=== PATIENT | female | born 1995 | race African-American/Black ===

== ENCOUNTER → 2017-06-11 | Outpatient (CLI) | payer SELFPAY ==
--- NOTE | 2017-06-11 16:44 | RADIOLOGY REPORT (SQ) ---
EXAM DESCRIPTION: U/S [id number] TRNABD 1GES W/ODOP COMPLETED DATE/TIME: 06/11/2017 4:14 pm REASON FOR STUDY: ENCOUNTER FOR SUPERVISION OF OTHER NORMAL , FIRST TRIMESTER(Z34.81 Z34.81 ENCOUNTER FOR SUPRVSN OF NORMAL , FIRST TRIM COMPARISON: None. TECHNIQUE: Transabdominal static and realtime grayscale images acquired of the pelvis. Additional se lected spectral and color Doppler images recorded. All images stored on PACs. bHCG: Not available. LIMITATIONS: None. FINDINGS: Single intrauterine with crown-rump length corresponding to 11 weeks 4 days. Es timated due date 12/27/2017. heart rate 168. No evidence of subchorionic hemorrhage. Ovaries are normal. IMPRESSION: LIVING INTRAUTERINE . EGA 11 weeks 4 days Trimester of : First - 0 to 13 weeks. TECHNICAL DOCUMENTATION: JOB ID: [id number] [employer]- All Rights Reserved
== END ==
LOC: RAD 15:32
PROVIDERS: ATTEND Nurse Practitioner Women's Health
DX: Z34.81 Encounter for supervision of other normal pregnancy, first trimester (principal)
CPT/HCPCS: 76801

== ENCOUNTER 2017-08-01 20:19 | Emergency (ER) | payer MEDICAID ==
[2017-08-01 21:42] LABS: ABSOLUTE EOSINOPHILS # (AUTO) 0.1 10^3/uL (0.0-0.6); ABSOLUTE LYMPHOCYTES (AUTO) 2.9 10^3/uL (0.5-4.7); ABSOLUTE MONOCYTES (AUTO) 0.5 10^3/uL (0.1-1.4); BASOPHILS % (AUTO) 0.4 % (0-2); EOSINOPHILS % (AUTO) 0.8 % (0-6); HEMATOCRIT 35.1 % (36.0-47.0); HEMOGLOBIN 11.9 g/dL (12.0-15.5); HGB HCT DIFFERENCE 0.6; LYMPHOCYTES % (AUTO) 27.9 % (13-45); MEAN CORPUSCULAR HEMOGLOBIN 29.3 pg (27.0-33.4); MEAN CORPUSCULAR HGB CONC 33.9 g/dL (32.0-36.0); MEAN CORPUSCULAR VOLUME 86 fl (80-97); MONOCYTES % (AUTO) 4.6 % (3-13); RED BLOOD COUNT 4.06 10^6/uL (3.72-5.28); RED CELL DISTRIBUTION WIDTH 16.9 % (11.5-14.0); SEGMENTED NEUTROPHILS % (AUTO) 66.3 % (42-78); WHITE BLOOD COUNT 10.5 10^3/uL (4.0-10.5)
[2017-08-01 21:45] LABS: AMORPHOUS SEDIMENT,URINE TRACE /HPF; APPEARANCE,URINE SLIGHTLY-CLOUDY; BILIRUBIN,URINE NEGATIVE (NEGATIVE); GLUCOSE, URINE NEGATIVE (NEGATIVE); KETONES,URINE 20 mg/dL (NEGATIVE); LEUKOCYTE ESTERASE,URINE SMALL (NEGATIVE); NITRITE,URINE NEGATIVE (NEGATIVE); PROTEIN,URINE 30 mg/dL (NEGATIVE); URINE SPECIFIC GRAVITY 1.032; UROBILINOGEN,URINE NEGATIVE mg/dL (<2.0)
[2017-08-01 21:52] LABS: ALANINE AMINOTRANSFERASE 87 U/L (9-52); ALBUMIN 3.8 g/dL (3.5-5.0); ALKALINE PHOSPHATASE 55 U/L (38-126); ANION GAP 11 (5-19); ASPARTATE AMINO TRANSFERASE 55 U/L (14-36); BLOOD UREA NITROGEN 8 mg/dL (7-20); CALCIUM 9.4 mg/dL (8.4-10.2); CARBON DIOXIDE 24 mmol/L (22-30); CHLORIDE 103 mmol/L (98-107); CREATININE RESULT 0.68 mg/dL (0.52-1.25); GLUCOSE 111 mg/dL (75-110); LIPASE 65.7 U/L (23-300); POTASSIUM 3.4 mmol/L (3.6-5.0); SODIUM 138.1 mmol/L (137-145); TOTAL PROTEIN 7.2 g/dL (6.3-8.2)
[2017-08-01 21:53] LABS: BILIRUBIN,TOTAL < 0.1 mg/dL (0.2-1.3)
--- NOTE | 2017-08-01 23:11 | ER Document Report ---
HPI - HPI Pain Level: 3 Notes: Patient is a 22-year-old female who presents the ED approximately 18 weeks complaining of lower pelvic cramping 4 hours that has been relatively steady. Patient states that she has had cramping in the past with this , but it has not lasted this long. Patient is otherwise eating and drinking without any difficulties. She is urinating normally and having normal bowel movements. She has not noticed any vaginal discharge, odor, or bleeding. 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 Patient denies any other recent illness. She denies any significant medical history or drug allergies otherwise. Denies any headache, fever, URI, sore throat, chest pain, palpitations, syncope, cough , shortness of breath, wheeze, dyspnea, nausea/vomiting/diarrhea, urinary retention, dysuria, hematuria, back pain, loss of control of bowel or bladder, numbness/tingling, saddle anesthesia, muscle paralysis/weakness, or rash. - ROS Notes: REVIEW OF SYSTEMS: CONSTITUTIONAL : Denies fever, chills, or sweats. Denies recent illness. EENT: Denies eye, ear, throat, or mouth pain or symptoms. Denies nasal or sinus congestion or discharge. Denies throat, tongue, or mouth swelling or difficulty swallowing. CARDIOVASCULAR: Denies chest pain. Denies palpitations or racing or irregular heart beat. Denies ankle edema. RESPIRATORY: Denies cough, cold, or chest congestion. Denies shortness of breath, difficulty breathing, or wheezing. GASTROINTESTINAL: see hpi. Denies nausea, vomiting, or diarrhea. Denies blood in vomitus, stools, or per rectum. Denies black, tarry stools. Denies constipation. GENITOURINARY: Denies difficulty urinating, painful urination, burning, frequency, blood in urine, or discharge. FEMALE GENITOURINARY: Denies vaginal bleeding, heavy or abnormal periods, irregular periods. Denies vaginal discharge or odor. MUSCULOSKELETAL: Denies back or neck pain or stiffness. Denies joint pain or swelling. SKIN: Denies rash, lesions or sores. NEUROLOGICAL: Denies confusion or altered mental status. Denies passing out or loss of consciousness. Denies dizziness or lightheadedness. Denies headache. Denies weakness or paralysis or loss of use of either side. Denies problems with gait or speech. Denies sensory loss, numbness, or tingling. Denies seizures. ALL OTHER SYSTEMS REVIEWED AND NEGATIVE. Dictation was performed using [employer] voice recognition software - REPRODUCTIVE LMP: 03/26/17 - DERM Skin Color: Normal Past Medical History - Social History Smoking Status: Unknown if Ever Smoked Family History: Reviewed & Not Pertinent Patient has suicidal ideation: No Patient has homicidal ideation: No Renal/ Medical History: Denies: Hx Peritoneal Dialysis Vertical Provider Document - CONSTITUTIONAL Agree With Documented VS: Yes Notes: PHYSICAL EXAMINATION: GENERAL: Well-appearing, well-nourished and in no acute distress. A&ox4 LUNGS: Breath sounds clear to auscultation bilaterally and equal. No wheezes rales or rhonchi. HEART: Regular rate and rhythm without murmurs, rubs, gallops. ABDOMEN: Soft, nondistended abdomen. No guarding, no rebound. No masses appreciated. Normal bowel sounds present. No CVA tenderness bilaterally. + mild tenderness to the suprapubic area. Neg McBurney point tenderness. No obvious hernia or lymphadenopathy. Musculoskeletal: LE's b/l: FROM to passive/active. Strength 5+/5. Extremities: No cyanosis, clubbing, or edema b/l. Peripheral pulses 2+. Capillary refill less than 3 seconds. NEUROLOGICAL: Normal speech, normal gait. Normal sensory, motor exams PSYCH: Normal mood, normal affect. SKIN: Warm, Dry, normal turgor, no rashes or lesions noted. - INFECTION CONTROL TRAVEL OUTSIDE OF THE [place] IN LAST 30 DAYS: No - RESPIRATORY O2 Sat by Pulse Oximetry: 98 Course - Re-evaluation Re-evalutation: 08/02/17 02:12 Patient is an afebrile, well-hydrated, 22-year-old female who presents the ED nonspecific pelvic cramping while being . Vitals are stable. PE is otherwise unremarkable. CBC, CMP, lipase, urinalysis, transvaginal ultrasound are unremarkable for any acute pathology. Low suspicion/risk for acute appendicitis, bowel obstruction, acute cholecystitis, acute cholangitis, perforated diverticulitis, incarcerated hernia, pancreatitis, perforated ulcer, peritonitis, sepsis, pelvic inflammatory disease, ectopic , tubo- ovarian abscess, ovarian torsion, or other systemic emergent condition at this time. Patient is aware that her condition can change from initial presentation and she needs to monitor symptoms closely and seek medical attention if any acute changes. Conservative measures otherwise for symptoms. Recheck with OBGYN in 2-3 days. Recheck with your PCM in 3-5 days. Return to the ED with any worsening/concerning symptoms otherwise as reviewed in discharge. Patient is in agreement. - Vital Signs Vital signs: Temp Pulse Resp BP Pulse Ox 99 F 109 H 18 133/78 H 98 08/01/17 20:39 08/01/17 20:39 08/01/17 20:39 08/01/17 20:39 08/01/17 20:39 - Laboratory Result Diagrams: 08/01/17 21:25 08/01/17 21:25 Laboratory results interpreted by me: 08/01/17 08/01/17 08/01/17 21:25 21:25 21:25 Hgb 11.9 L Hct 35.1 L RDW 16.9 H Potassium 3.4 L Glucose 111 H Total Bilirubin < 0.1 L AST 55 H ALT 87 H Urine Protein 30 H Urine Ketones 20 H Ur Leukocyte Esterase SMALL H Urine HCG, Qual POSITIVE H Discharge - Discharge Clinical Impression: Pelvic cramping Condition: Stable Disposition: HOME, SELF-CARE Instructions: Pelvic Pain in ([facility]), ([facility]) Additional Instructions: Rest Tylenol/ibuprofen as needed Light stretches daily Strength exercises as able Moist heat, cool compress, and massage may help F/u with your PCP in 3-5 days for a recheck Schedule a consult with OBGYN Return to the ED with any worsening symptoms and/or development of fever, headache, chest pain, palpitations, syncope, shortness of breath, trouble breathing, abdominal pain, n/v/d, muscle weakness/paralysis, vaginal bleeding/ odor/discharge, or other worsening symptoms that are concerning to you. Referrals: SPEEDY REY MD [ACTIVE STAFF] - Follow up as needed [facility] [Provider Group] - Follow up in 3-5 days
--- NOTE | 2017-08-02 01:42 | RADIOLOGY REPORT (SQ) ---
EXAM DESCRIPTION: U/S OB 14+ TA/1 GEST W/DOPPLER CLINICAL HISTORY: 22 years, Female, pelvic cramping COMPARISON: 06/11/2017 TECHNIQUE: The second trimester obstetrical ultrasound performed using a transabdominal technique. Due to positioning the intracranial contents are not well evaluated. FINDINGS: Gestational measurements. BPD: 4.33 cm compatible with an estimated gestational age of 19 weeks, 1 days. HC: 17.02 cm compatible with an estimated gestational age of 19 weeks, 4 days. AC: 12.57 cm compatible with an estimated gestational age of 18 weeks, 1 days. Femur length: 3.22 cm compatible with an estimated gestational age of 20 weeks, 0 days. heart rate of 149 bpm. LVP of 4.2 cm. Estimated weight of 275 g. not calculated presentation is vertex. Estimated gestational age of 19 weeks, 2 days. Estimated delivery date of 12/25/2017 Cervical length: 2.9. organ survey: Due to positioning the intracranial contents are not evaluated adequately. Four-chamber heart is identified. Three-vessel cord insertion identified. No abnormalities of the kidneys, bladder, stomach, or extremities. Lateral ventricles are within normal limits. No definite abnormalities of the visualized portions of the spine however the entire spine is not visualized. The cerebellum and cisterna magna are not well evaluated. Adnexa: The left ovary measures 3.6 x 3.7 x 2.6 cm. The right ovary is not identified. In the anterior uterine myometrium there is a hypoechoic region measuring 2.5 cm in greatest dimension. This may represent a fibroid. IMPRESSION: 1. Single live intrauterine with estimated gestational age of 19 weeks, 2 days. heart rate of 147 bpm. 2. No definite abnormality noted on organ survey.
[2017-08-02 02:09] VITALS: BP 120/66
== END 2017-08-02 02:20 | disposition home or self-care (01) ==
LOC: ER 20:19
DX: O26.892 Other specified pregnancy related conditions, second trimester (principal); R10.2 Pelvic and perineal pain; Z3A.18 18 weeks gestation of pregnancy
CPT/HCPCS: 36415; 76805; 80053; 81001; 81025; 83690; 84702; 85025; 93976; 99284

== ENCOUNTER 2017-12-25 09:37 | Outpatient (CLI) | payer MEDICAID ==
[2017-12-25 10:15] LABS: APPEARANCE,URINE SLIGHTLY-CLOUDY; BILIRUBIN,URINE NEGATIVE (NEGATIVE); COLOR,URINE YELLOW; GLUCOSE, URINE NEGATIVE (NEGATIVE); KETONES,URINE NEGATIVE (NEGATIVE); LEUKOCYTE ESTERASE,URINE MODERATE (NEGATIVE); NITRITE,URINE NEGATIVE (NEGATIVE); PROTEIN,URINE NEGATIVE (NEGATIVE); URINE SPECIFIC GRAVITY 1.013; UROBILINOGEN,URINE NEGATIVE mg/dL (<2.0)
[2017-12-25 10:42] LABS: URINE AMPHETAMINES SCREEN NEGATIVE; URINE BARBITURATES SCREEN NEGATIVE; URINE BENZODIAZEPINES SCREEN NEGATIVE; URINE COCAINE SCREEN NEGATIVE; URINE MARIJUANA (THC) SCREEN NEGATIVE; URINE METHADONE SCREEN NEGATIVE; URINE PHENCYCLIDINE SCREEN NEGATIVE
--- NOTE | 2017-12-25 11:21 | Non Stress Test Report ---
Non Stress Test Datetime Report Generated by CPN: 12/25/2017 11:21 DEMOGRAPHIC EGA NST: 39.1 INDICATION Indication for Study: Other Indication for Study (NST) Other: LABOR CHECK MONITORING Monitor Explained: Monitor Explained; Test Explained; Patient Verbalized Understanding Time on Monitor: 12/25/2017 09:50 Time off Monitor: 12/25/2017 10:58 NST Duration: 68 NST INTERVENTIONS NST Interventions: PO Hydration; Reposition Patient Physician Notified NST: J TORO, CNM BABY A: [id number] BABY A Movement : Present Contraction Frequency : IRREG FHR Baseline : 130 Accelerations : 15X15 Decelerations : None Variability : Moderate 6-25bpm NST Review: Meets Criteria for Reactive NST NST Review and Verified By : Ann Marie Camp RNC NST Results: Reactive NST REPORT Report Trigger: Send Report
== END 2017-12-25 11:13 | disposition home or self-care (01) ==
LOC: LC 09:37
PROVIDERS: ATTEND Obstetrics & Gynecology
PROC: 4A1HXCZ Monitoring of Products of Conception, Cardiac Rate, External Approach (ICD-10-PCS; principal; 2017-12-25)
DX: O47.1 False labor at or after 37 completed weeks of gestation (principal); Z3A.39 39 weeks gestation of pregnancy
CPT/HCPCS: 59025; 80307; 81005

== ENCOUNTER 2017-12-26 04:47 | Outpatient (CLI) | payer MEDICAID ==
[2017-12-26 05:37] LABS: APPEARANCE,URINE CLEAR; BILIRUBIN,URINE NEGATIVE (NEGATIVE); COLOR,URINE STRAW; GLUCOSE, URINE NEGATIVE (NEGATIVE); KETONES,URINE NEGATIVE (NEGATIVE); LEUKOCYTE ESTERASE,URINE NEGATIVE (NEGATIVE); NITRITE,URINE NEGATIVE (NEGATIVE); PROTEIN,URINE NEGATIVE (NEGATIVE); URINE SPECIFIC GRAVITY 1.008; UROBILINOGEN,URINE NEGATIVE mg/dL (<2.0)
[2017-12-26 05:53] LABS: URINE AMPHETAMINES SCREEN NEGATIVE; URINE BARBITURATES SCREEN NEGATIVE; URINE BENZODIAZEPINES SCREEN NEGATIVE; URINE COCAINE SCREEN NEGATIVE; URINE MARIJUANA (THC) SCREEN NEGATIVE; URINE METHADONE SCREEN NEGATIVE; URINE PHENCYCLIDINE SCREEN NEGATIVE
== END 2017-12-26 08:01 | disposition home or self-care (01) ==
LOC: LC 04:47
PROVIDERS: ATTEND Obstetrics & Gynecology
PROC: 4A1HXCZ Monitoring of Products of Conception, Cardiac Rate, External Approach (ICD-10-PCS; principal; 2017-12-26)
DX: O47.1 False labor at or after 37 completed weeks of gestation (principal); Z3A.39 39 weeks gestation of pregnancy
CPT/HCPCS: 59025; 80307; 81005

== ENCOUNTER 2017-12-27 00:39 | Inpatient (IN) | payer MEDICAID ==
[2017-12-27] MEDS ORDERED: RINGERS SOLUTION,LACTATED 1,000 ML IV PRN (00:55)
[2017-12-27] MEDS ORDERED: RINGERS SOLUTION,LACTATED 1,000 ML IV ONE (00:55)
[2017-12-27] MEDS ORDERED: BENZOIN/ALOE VERA/STORAX/TOLU TINCTURE 60 ML TP PRN (00:56)
[2017-12-27] MEDS ORDERED: FENTANYL/BUPIVACAINE/NS/PF 200 MCG/100 ML RTUINJ EPI PRN (00:56)
[2017-12-27] MEDS ORDERED: BUPIVACAINE HCL 0.25 % INJ/PF (2.5 MG/1 ML) 30 ML VIAL INFIL ONE (00:56)
[2017-12-27 01:16] LABS: APPEARANCE,URINE CLOUDY; BILIRUBIN,URINE NEGATIVE (NEGATIVE); GLUCOSE, URINE NEGATIVE (NEGATIVE); KETONES,URINE TRACE mg/dL (NEGATIVE); LEUKOCYTE ESTERASE,URINE MODERATE (NEGATIVE); NITRITE,URINE NEGATIVE (NEGATIVE); PROTEIN,URINE NEGATIVE (NEGATIVE); URINE SPECIFIC GRAVITY 1.004; UROBILINOGEN,URINE NEGATIVE mg/dL (<2.0)
[2017-12-27 01:17] LABS: COLOR,URINE STRAW
[2017-12-27 01:31] LABS: ABSOLUTE BASOPHILS # (AUTO) 0.1 10^3/uL (0.0-0.2); ABSOLUTE LYMPHOCYTES (AUTO) 2.6 10^3/uL (0.5-4.7); ABSOLUTE MONOCYTES (AUTO) 0.9 10^3/uL (0.1-1.4); ABSOLUTE NEUT (AUTO) 10.5 10^3/uL (1.7-8.2); BASOPHILS % (AUTO) 0.6 % (0-2); EOSINOPHILS % (AUTO) 0.1 % (0-6); HEMOGLOBIN 12.7 g/dL (12.0-15.5); LYMPHOCYTES % (AUTO) 18.4 % (13-45); MEAN CORPUSCULAR HEMOGLOBIN 29.4 pg (27.0-33.4); MEAN CORPUSCULAR HGB CONC 33.3 g/dL (32.0-36.0); MEAN CORPUSCULAR VOLUME 88 fl (80-97); MONOCYTES % (AUTO) 6.5 % (3-13); PLATELET COUNT 202 10^3/uL (150-450); RED BLOOD COUNT 4.31 10^6/uL (3.72-5.28); RED CELL DISTRIBUTION WIDTH 15.3 % (11.5-14.0); SEGMENTED NEUTROPHILS % (AUTO) 74.4 % (42-78); TOTAL CELLS COUNTED % (AUTO) 100 %; WHITE BLOOD COUNT 14.2 10^3/uL (4.0-10.5)
[2017-12-27] MEDS ORDERED: FENTANYL/BUPIVACAINE/NS/PF 300 MCG/150 ML RTUINJ EPI ONE (01:47)
[2017-12-27] MEDS ORDERED: EPHEDRINE SULFATE INJ 50 MG/1 ML AMPULE ONE (01:47)
[2017-12-27 01:48] LABS: URINE AMPHETAMINES SCREEN NEGATIVE; URINE BARBITURATES SCREEN NEGATIVE; URINE BENZODIAZEPINES SCREEN NEGATIVE; URINE COCAINE SCREEN NEGATIVE; URINE MARIJUANA (THC) SCREEN NEGATIVE; URINE METHADONE SCREEN NEGATIVE; URINE PHENCYCLIDINE SCREEN NEGATIVE
[2017-12-27] MEDS ORDERED: BUPIVACAINE HCL 0.25 % INJ/PF (2.5 MG/1 ML) 30 ML VIAL ONE ×2 (01:48→01:51)
[2017-12-27] MEDS ORDERED: LIDOCAINE 1% INJ-PF (10 MG/ML) 30 ML SDV ONE (03:49)
[2017-12-27] MEDS ORDERED: OXYTOCIN/NORMAL SALINE 20 UNIT/1,000 ML RTUINJ ONE (03:49)
[2017-12-27] MEDS ORDERED: MISOPROSTOL 0.2 MG TABLET ONE (03:49)
--- NOTE | 2017-12-27 06:01 | Admission Physical ---
Datetime Report Generated by CPN: 12/27/2017 05:37 CURRENT ADMISSION Chief Complaint: Uterine Contractions Indication for Induction: Not Applicable Admit Impression : Term, Intrauterine Admit Plan: Initiate Labor Protocol ALLERGIES Medication Allergies: No Medication Allergies: No Known Allergies (12/26/2017) Latex: No Latex Allergies Food Allergies: NONE Environmental Allergies: NONE OBSTETRICAL HISTORY EDC: 12/31/2017 00:00 : 1 Para: 0 Term: 0 : 0 SAB: 0 IAB: 0 Ectopic: 0 Livin Cesareans: 0 VBACs: 0 Multiple Births: 0 Gestational Diabetes: No Rh Sensitization: No Incompetent Cervix: No ALONSO: No Infertility: No ART Treatment: No Uterine Anomaly: No IUGR: No Hx Previous C/S: No Macrosomia: No Hx Loss/Stillborn: No PIH: No Hx : No Placenta Previa/Abruption: No Depression/PP Depression: No PTL/PROM: No Post Hemorrhage: No Current Procedures: Ultrasound Obstetrical History Comments: G1- CURRENT SEE RECORDS Alcohol: No Marijuana : No Cocaine: No Other Illicit Drugs: No Cigarettes: Never Smoker. 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 Surgery: No Heart Disease: No Hosp/Surgery: No Autoimmune Disorder: No Anesthetic Complications: No Kidney Disease: No Abnormal Pap Smear: No Neuro/Epilepsy: No Psychiatric Disorders: No Other Medical Diseases: No Hepatitis/Liver Disease: No Significant Family History: No Varicosities/Phlebitis: No Trauma/Violence : No Thyroid Dysfunction: No INFECTIOUS HISTORY Gonorrhea: No Genital Herpes: No Chlamydia: No Tuberculosis: No Syphilis: No Hepatitis: No HIV/AIDS Exposure: No Rash or Viral Illness: No HPV: No PHYSICAL EXAM General: Normal HEENT: Normal Neurologic: Normal Thyroid: Normal Heart: Normal Lungs: Normal Breast: Deferred Back: Normal Abdomen: Normal Genitourinary Exam: Normal Extremities: Normal DTRs: Normal Pelvic Type: Adequate MEMBRANES Membranes: Ruptured Amniotic Fluid Color: Clear FETUS A EGA: 39.3 Monitoring: External US Decelerations: None PLANS FOR LABOR AND DELIVERY Labor and Delivery: None Pain Management: Epidural Feeding Preference: Both Benefit of Breast Feed Discussed: Yes Circumcision: N/A INFORMED CONSENT Signature: with User ID: [email or web address]
[2017-12-27] MEDS ORDERED: OXYTOCIN/NORMAL SALINE 20 UNIT/1,000 ML RTUINJ IV PRN (06:25)
[2017-12-27] MEDS ORDERED: MEASLES,MUMPS&RUBELLA VACC/PF 0.5 ML VIAL SUBCUT PRN (06:25)
[2017-12-27] MEDS ORDERED: DIBUCAINE 1% OINTMENT 28 GM TP PRN (06:25)
[2017-12-27] MEDS ORDERED: BENZOCAINE/MENTHOL AEROSOL SPRAY 56 ML TOP PRN (06:25)
[2017-12-27] MEDS ORDERED: ACETAMINOPHEN 650 MG SUPP.RECT PR PRN (06:25)
[2017-12-27] MEDS ORDERED: MAGNESIUM HYDROXIDE SUSP 30 ML UDCUP PO PRN (06:25)
[2017-12-27] MEDS ORDERED: ACETAMINOPHEN WITH CODEINE #3 TABLET PO PRN ×2 (06:25)
[2017-12-27] MEDS ORDERED: NA PHOS,M-B/NA PHOS,DI-BA (ADULT) 133 ML ENEMA PR PRN (06:25)
[2017-12-27] MEDS ORDERED: PROMETHAZINE HCL INJ 25 MG/1 ML VIAL IV PRN (06:25)
[2017-12-27] MEDS ORDERED: ZOLPIDEM TARTRATE 5 MG TABLET PO PRN (06:25)
[2017-12-27] MEDS ORDERED: PROMETHAZINE HCL 25 MG SUPP.RECT PR PRN (06:25)
[2017-12-27] MEDS ORDERED: PROMETHAZINE HCL 25 MG TABLET PO PRN (06:25)
[2017-12-27] MEDS ORDERED: PSEUDOEPHEDRINE HCL 30 MG TABLET PO PRN (06:25)
[2017-12-27] MEDS ORDERED: DIPH/PERTUSS(ACELL)/TETANUS VAC/PF 0.5 ML SYR (>=10YO) IM PRN (06:25)
[2017-12-27] MEDS ORDERED: DIPHENHYDRAMINE HCL 25 MG CAPSULE PO PRN (06:25)
[2017-12-27] MEDS ORDERED: GLYCERIN/WITCH HAZEL LEAF 1 EACH MED..PAD TP PRN (06:25)
--- NOTE | 2017-12-27 08:09 | Delivery Summary ---
Del Sum A-C Datetime Report Generated by CPN: 12/27/2017 08:08 DELIVERY PERSONNEL DELIVERY PERSONNEL: [id number] Delivery Doctor:: Moises Berrios MD Labor and Delivery Nurse:: Samara Verdin RN Labor and Delivery Nurse:: Hortencia Palma RN Concrete Products Dispatcher/SALES PROMOTION COORDINATOR: Arian Ertel, SALES PROMOTION COORDINATOR MATERNAL INFORMATION Delivery Anesthesia: Epidural Medications After Delivery: Pitocin Bolus-Please Comment; Pitocin Drip 20 Units/1000ml NSS Maternal Complications: None Provider Comments: female 04/28 apgars intavt placenta 3 vessel cord small abrasion no repair needed LABOR SUMMARY EDC: 12/31/2017 00:00 No. Babies in Womb: 1 Attempted: No Labor Anesthesia: Epidural LABOR INFORMATION Reason for Induction: Not Applicable Onset of Labor: 12/27/2017 00:58 Complete Dilatation: 12/27/2017 05:35 Oxytocin: N/A Group B Beta Strep: Negative Antibiotics # of Doses: 0 Steroids Given: None Reason Steroids Not Administered: Not Applicable MEMBRANES Membranes Rupture Method: Spontaneous Rupture of Membranes: 12/27/2017 05:07 Length of Rupture (hr): 1.00 Amniotic Fluid Color: Clear Amniotic Fluid Amount: Small Amniotic Fluid Odor: Normal STAGES OF LABOR Stage 1 hr: 4 Stage 1 min: 37 Stage 2 hr: 0 Stage 2 min: 32 Stage 3 hr: 0 Stage 3 min: 4 Total Time in Labor hr: 5 Total Time in Labor min: 13 VAGINAL DELIVERY Episiotomy: None Laceration #1: None Laceration Extension #1: N/A Laceration Repair: Not Applicable Sponge Count Correct: N/A Sharps Count Correct: N/A CSECTION DELIVERY Primary Indication: N/A Secondary Indication: N/A CSection Incidence: N/A Labor: N/A Elective: N/A CSection Incision: N/A BABY A INFORMATION Delivery Date/Time: 12/27/2017 06:07 Method of Delivery: Vaginal Born in Route : No : N/A Forceps: N/A Vacuum Extraction: N/A Shoulder Dystocia : No PRESENTATION/POSITION BABY A Presentation: Cephalic Cephalic Presentation: Vertex Vertex Position: Left Occipital Anterior Breech Presentation: N/A PLACENTA INFORMATION BABY A Placenta Delivery Time : 12/27/2017 06:11 Placenta Method of Delivery: Spontaneous Placenta Status: Delivered SCORES BABY A Heart Rate 1 min: >100 bpm Resp Effort 1 min: Good Cry Reflex Irritability 1 min: Cough or Sneeze or Pulls Away Muscle Tone 1 min: Active Motion Color 1 min: Body [place], Extremities Blue Resuscitation Effort 1 min: Tactile Stimulation SCORE 1 MIN: 9 Heart Rate 5 min: >100 bpm Resp Effort 5 min: Good Cry Reflex Irritability 5 min: Cough or Sneeze or Pulls Away Muscle Tone 5 min: Active Motion Color 5 min: Body [place], Extremities Blue Resuscitation Effort 5 min: Tactile Stimulation SCORE 5 MIN: 9 INFORMATION BABY A Gestational Age at Delivery: 39.3 Gestational Status: Full Term- 39- 40.6 Weeks Outcome : Liveborn Infant Condition : Stable Infant Sex: Female IDENTIFICATION BABY A Verification Date/Time: 12/27/2017 06:19 ID Band Number: [id number] Mother's Name Verified: Yes Infant RN Verifying : B Delvin, RN / K Minerva, RN WEIGHT/LENGTH BABY A Infant Birthweight (gm): 2820 Weight (lb): 6 Weight (oz): 3 Length (in): 19.50 Length (cm): 49.53 CORD INFORMATION BABY A No. Cord Vessels: 3 Nuchal Cord : N/A Cord Blood Taken: Yes-For Eval (Mom's Blood Type - or O+) Infant Suction: Mouth; Nose ASSESSMENT BABY A Infant Complications: None Physical Findings at Delivery: Within Normal Limits Infant Respirations: Appears Normal Skin to Skin: Yes Skin to Skin Time (min): 60 Director Internal Communications/ALS Called : No Care By: Charles MinervaGIUSEPPE lopez Transferred To: Remains with Mother BABY B INFORMATION : N/A SIGNATURES Signature: with User ID: [email or web address]
[2017-12-27] MEDS: SENNOSIDES/DOCUSATE 8.6-50 MG 1 EACH TABLET PO SCH (10:36)
[2017-12-27] MEDS: PRENATAL VITAMIN W DHA CAPSULE PO SCH (10:37)
[2017-12-27] MEDS: FAMOTIDINE 20 MG TABLET PO SCH ×2 (10:37→21:35)
[2017-12-27] MEDS: DOCUSATE SODIUM 100 MG CAPSULE PO SCH ×2 (10:37→18:04)
[2017-12-27] MEDS: FERROUS SULFATE 325 MG TABLET PO SCH ×2 (10:38→18:04)
[2017-12-27] MEDS: IBUPROFEN 800 MG TABLET PO SCH ×2 (14:21→21:35)
[2017-12-28] MEDS: IBUPROFEN 800 MG TABLET PO SCH ×3 (05:34→23:29)
[2017-12-28 07:45] LABS: HEMATOCRIT 34.5 % (36.0-47.0); HEMOGLOBIN 11.7 g/dL (12.0-15.5); MEAN CORPUSCULAR HEMOGLOBIN 30.1 pg (27.0-33.4); MEAN CORPUSCULAR VOLUME 89 fl (80-97); PLATELET COUNT 171 10^3/uL (150-450); RED CELL DISTRIBUTION WIDTH 15.3 % (11.5-14.0)
[2017-12-28] MEDS: SENNOSIDES/DOCUSATE 8.6-50 MG 1 EACH TABLET PO SCH (09:44)
[2017-12-28] MEDS: PRENATAL VITAMIN W DHA CAPSULE PO SCH (09:44)
[2017-12-28] MEDS: FERROUS SULFATE 325 MG TABLET PO SCH ×2 (09:44→18:20)
[2017-12-28] MEDS: DOCUSATE SODIUM 100 MG CAPSULE PO SCH ×2 (09:44→18:20)
[2017-12-28] MEDS: FAMOTIDINE 20 MG TABLET PO SCH ×2 (09:45→23:30)
--- NOTE | 2017-12-28 09:57 | PDOC PROGRESS REPORT ---
Subjective-OB Progress Note for:: 12/28/17 Subjective: s/p vaginal delivery pain well managed ff@u-1 mild lochia d/c in AM Physical Exam (OB) Vital Signs: Temp Pulse Resp BP Pulse Ox 98.6 F 87 16 118/70 100 12/28/17 08:56 12/28/17 08:56 12/28/17 08:56 12/28/17 08:56 12/28/17 08:56 Intake & Output 12/27/17 12/28/17 12/29/17 06:59 06:59 06:59 Intake Total 760 Balance 760 Weight 122 kg - PIH/Pre-Eclampsia DTR's: 2 + Clonus: Negative Headache: Absent Epigastric Pain: No Visual Changes: No - Lochia Lochia Amount: Scant < 10 ml Lochia Color: Rubra/Red - Abdomen Description: Soft Hernia Present: No Fundal Description: Firm, Midline Fundal Height: u/u - u/2 Objective-Diagnostic Laboratory: 12/28/17 07:14 12/28/17 07:14 WBC 13.0 H RBC 3.90 Hgb 11.7 L Hct 34.5 L MCV 89 MCH 30.1 MCHC 34.0 RDW 15.3 H Plt Count 171
[2017-12-29] MEDS: IBUPROFEN 800 MG TABLET PO SCH (05:49)
[2017-12-29 07:50] VITALS: BP 121/72
--- NOTE | 2017-12-29 08:42 | PDOC DISCHARGE SUMMARY ---
Final Diagnosis Discharge Date: 12/29/17 - Final Diagnosis (1) Vaginal delivery Is this a current diagnosis for this admission?: Yes Discharge Data - Discharge Medication Home Medications: No122/Iron/Folic Acid [ Multi Tablet] 1 each PO DAILY 12/25/17 Reason(s) for Admission: Onset of Labor Intrapartum Procedure(s): Spontaneous Vaginal Delivery - Diagnosis Test Laboratory: Temp Pulse Resp BP Pulse Ox 98.2 F 84 18 121/72 97 12/29/17 07:31 12/29/17 07:31 12/29/17 07:31 12/29/17 07:31 12/29/17 07:31 12/27/17 12/27/17 12/28/17 00:45 01:13 07:14 RBC 4.31 3.90 Hgb 12.7 11.7 L Hct 38.0 34.5 L Urine Opiates Screen NEGATIVE - Discharge information/Instructions Discharge Activity: Activity As Tolerated Discharge Diet: Regular Disposition: HOME, SELF-CARE Follow up with: [facility] in: 3
[2017-12-29] MEDS: DOCUSATE SODIUM 100 MG CAPSULE PO SCH (09:46)
[2017-12-29] MEDS: FERROUS SULFATE 325 MG TABLET PO SCH (09:47)
[2017-12-29] MEDS: SENNOSIDES/DOCUSATE 8.6-50 MG 1 EACH TABLET PO SCH (09:47)
[2017-12-29] MEDS: FAMOTIDINE 20 MG TABLET PO SCH (09:47)
[2017-12-29] MEDS: PRENATAL VITAMIN W DHA CAPSULE PO SCH (09:47)
== END 2017-12-29 12:10 | disposition home or self-care (01) | DRG 775 ==
LOC: LC 00:39 → LR 00:57 → 2S 08:27
PROVIDERS: ADMIT Obstetrics & Gynecology Gynecology; ATTEND Obstetrics & Gynecology Gynecology
PROC: 10E0XZZ Delivery of Products of Conception, External Approach (ICD-10-PCS; principal; 2017-12-27)
PROC: 4A1HXCZ Monitoring of Products of Conception, Cardiac Rate, External Approach (ICD-10-PCS; 2017-12-27)
PROC: 3E0234Z Introduction of Serum, Toxoid and Vaccine into Muscle, Percutaneous Approach (ICD-10-PCS; 2017-12-29)
DX: O70.0 First degree perineal laceration during delivery (principal); Z3A.39 39 weeks gestation of pregnancy; Z37.0 Single live birth; Z23 Encounter for immunization
CPT/HCPCS: 36415; 80307; 81005; 85025; 85027; 86592; 86850; 86900; 86901; 90715; J2590; J3010; J3490

== ENCOUNTER 2019-07-30 16:46 | Emergency (ER) | payer MEDICAID ==
[2019-07-30 17:16] VITALS: BP 134/75
--- NOTE | 2019-07-30 19:46 | ER Document Report ---
HPI - HPI Time Seen by Provider: 07/30/19 18:50 Pain Level: 2 Notes: 24-year-old female patient presenting to the ED with concern for possible abscess to the side of her face. Patient reports this thing has been there for 2 years but is worsening over the last week, states that the pain has increased. Denies any drainage from the area. - REPRODUCTIVE Reproductive: REPORTS: : Past Medical History - General Information source: Patient - Social History Smoking Status: Never Smoker Chew tobacco use (# tins/day): No Frequency of alcohol use: None Drug Abuse: None Family History: Reviewed & Not Pertinent Patient has suicidal ideation: No Patient has homicidal ideation: No - Medical History Medical History: Negative Renal/ Medical History: Denies: Hx Peritoneal Dialysis Surgical Hx: Negative - Immunizations Immunizations up to date: Yes Vertical Provider Document - CONSTITUTIONAL Notes: PHYSICAL EXAMINATION: GENERAL: Well-appearing, well-nourished and in no acute distress. HEAD: Atraumatic, normocephalic. EYES: Pupils equal round extraocular movements intact, conjunctiva are normal. ENT: Nares patent NECK: Normal range of motion LUNGS: No respiratory distress Musculoskeletal: Normal range of motion NEUROLOGICAL: Normal speech, normal gait. PSYCH: Normal mood, normal affect. SKIN: Fluctuant area noted to right side of patient's face just outside the right outer corner of the eye. - INFECTION CONTROL TRAVEL OUTSIDE OF THE [place] IN LAST 30 DAYS: No Course - Re-evaluation Re-evalutation: Abscess was incised and drained with an 18-gauge needle, patient tolerated procedure well. Large amount of drainage obtained. Patient will be started on cephalexin and discharged home. The patient's emergency department workup and current diagnosis were explained to the patient and or family. Follow-up instructions were provided. Medicati ons if prescribed were discussed. Instructions for when to return to the emergency department including specific worrisome symptoms were discussed with the patient and/or family. - Vital Signs Vital signs: Temp Pulse Resp BP Pulse Ox 98.2 F 81 16 134/75 H 100 07/30/19 17:14 07/30/19 17:14 07/30/19 17:14 07/30/19 17:14 07/30/19 17:14 Procedures - Incision and Drainage Right face Type: Simple I&D procedure: Chlorprep applied Incision Method: Incision made with needle Discharge - Discharge Clinical Impression: Abscess Condition: Stable Disposition: HOME, SELF-CARE Additional Instructions: Please take antibiotics as prescribed. Continue to apply warm compresses to the area 3-4 times daily. Follow-up with your doctor if not improving. Prescriptions: Cephalexin [Keflex] 500 mg PO BID #14 capsule Referrals: RISHI ROLAND MD [Primary Care Provider] - Follow up as needed
== END 2019-07-30 20:08 | disposition home or self-care (01) ==
LOC: ER 16:46
DX: L02.01 Cutaneous abscess of face (principal)
CPT/HCPCS: 99282

== ENCOUNTER 2019-08-24 02:18 | Outpatient (CLI) | payer MEDICAID ==
[2019-08-24 02:46] LABS: APPEARANCE,URINE SLIGHTLY-CLOUDY; BILIRUBIN,URINE NEGATIVE (NEGATIVE); COLOR,URINE YELLOW; GLUCOSE, URINE NEGATIVE (NEGATIVE); KETONES,URINE 20 mg/dL (NEGATIVE); LEUKOCYTE ESTERASE,URINE SMALL (NEGATIVE); NITRITE,URINE NEGATIVE (NEGATIVE); PROTEIN,URINE 100 mg/dL (NEGATIVE); URINE SPECIFIC GRAVITY 1.025
[2019-08-24 03:11] LABS: URINE AMPHETAMINES SCREEN NEGATIVE; URINE BARBITURATES SCREEN NEGATIVE; URINE BENZODIAZEPINES SCREEN NEGATIVE; URINE COCAINE SCREEN NEGATIVE; URINE MARIJUANA (THC) SCREEN NEGATIVE; URINE METHADONE SCREEN NEGATIVE; URINE PHENCYCLIDINE SCREEN NEGATIVE
--- NOTE | 2019-08-24 03:21 | Non Stress Test Report ---
Non Stress Test Datetime Report Generated by CPN: 08/24/2019 03:20 DEMOGRAPHIC EGA NST: 38.4 INDICATION Indication for Study (NST) Other: gestational age greater than 32 weeks VITAL SIGNS Temperature - NST: 98.0 Pulse - NST: 116 RESP - NST: 16 NBPSYS NST: 134 NBPDIA NST: 81 URINE RESULTS Urine Protein, NST: Positive Urine Ketones - NST: Positive Urine Glucose - NST: Negative Urine Blood - NST: Negative MONITORING Monitor Explained: Monitor Explained; Test Explained; Patient Verbalized Understanding Time on Monitor: 08/24/2019 02:30 Time off Monitor: 08/24/2019 02:55 NST Duration: 25 NST INTERVENTIONS NST Interventions: PO Hydration Physician Notified NST: Dr. Kunz BABY A: [id number] BABY A Movement : Present Contraction Frequency : 4-7 FHR Baseline : 150 Accelerations : 15X15 Decelerations : None Variability : Moderate 6-25bpm NST Review: Meets Criteria for Reactive NST NST Review and Verified By : KYeyo Rahmanco, RN NST Results: Reactive NST REPORT Report Trigger: Send Report
== END 2019-08-24 03:36 | disposition home or self-care (01) ==
LOC: LC 02:18
PROVIDERS: ATTEND Obstetrics & Gynecology
PROC: 4A1HXCZ Monitoring of Products of Conception, Cardiac Rate, External Approach (ICD-10-PCS; principal; 2019-08-24)
DX: O47.1 False labor at or after 37 completed weeks of gestation (principal); Z3A.38 38 weeks gestation of pregnancy
CPT/HCPCS: 59025; 80307; 81005

== ENCOUNTER 2019-08-24 03:54 | Inpatient (IN) | payer MEDICAID ==
[2019-08-24] MEDS ORDERED: RINGERS SOLUTION,LACTATED 1,000 ML IV PRN (04:00)
[2019-08-24] MEDS ORDERED: OXYTOCIN/NORMAL SALINE 0 UNIT/0 ML RTUINJ ONE (04:26)
[2019-08-24] MEDS ORDERED: OXYTOCIN 10 UNIT/ML VIAL ONE ×2 (04:26→07:26)
[2019-08-24] MEDS ORDERED: LIDOCAINE 1% INJ-PF (10 MG/ML) 30 ML SDV ONE ×2 (04:26→07:26)
[2019-08-24] MEDS ORDERED: MISOPROSTOL 0.2 MG TABLET ONE ×2 (04:26→07:26)
[2019-08-24 04:34] LABS: ABSOLUTE BASOPHILS # (AUTO) 0.1 10^3/uL (0.0-0.2); ABSOLUTE LYMPHOCYTES (AUTO) 3.4 10^3/uL (0.5-4.7); ABSOLUTE MONOCYTES (AUTO) 0.7 10^3/uL (0.1-1.4); ABSOLUTE NEUT (AUTO) 5.5 10^3/uL (1.7-8.2); BASOPHILS % (AUTO) 1.1 % (0-2); EOSINOPHILS % (AUTO) 0.4 % (0-6); HEMOGLOBIN 13.3 g/dL (12.0-15.5); LYMPHOCYTES % (AUTO) 34.6 % (13-45); MEAN CORPUSCULAR HEMOGLOBIN 30.4 pg (27.0-33.4); MEAN CORPUSCULAR HGB CONC 34.1 g/dL (32.0-36.0); MEAN CORPUSCULAR VOLUME 89 fl (80-97); MONOCYTES % (AUTO) 6.9 % (3-13); PLATELET COUNT 201 10^3/uL (150-450); RED BLOOD COUNT 4.38 10^6/uL (3.72-5.28); RED CELL DISTRIBUTION WIDTH 14.1 % (11.5-14.0); TOTAL CELLS COUNTED % (AUTO) 100 %; WHITE BLOOD COUNT 9.7 10^3/uL (4.0-10.5)
[2019-08-24] MEDS ORDERED: EPHEDRINE SULFATE INJ 50 MG/1 ML AMPULE ONE (04:51)
[2019-08-24] MEDS ORDERED: BUPIVACAINE HCL 0.25 % INJ/PF (2.5 MG/1 ML) 30 ML VIAL ONE (04:52)
[2019-08-24] MEDS ORDERED: FENTANYL/BUPIVACAINE/NS/PF 300 MCG/150 ML RTUINJ EPI ONE (04:52)
[2019-08-24] MEDS ORDERED: PHENYLEPHRINE HCL INJ/PF 10 MG/1 ML SDV ONE (04:53)
[2019-08-24] MEDS ORDERED: FENTANYL CITRATE INJ/PF 100 MCG/2 ML AMPUL ONE (04:53)
--- NOTE | 2019-08-24 07:14 | Admission Physical ---
Datetime Report Generated by CPN: 08/24/2019 07:13 CURRENT ADMISSION Chief Complaint: Uterine Contractions; Suspected Ruptured Membranes Indication for Induction: Not Applicable Admit Impression : Active Labor; Ruptured Membranes Admit Plan: Admit to Unit; Initiate Labor Protocol ALLERGIES Medication Allergies: No Medication Allergies: No Known Allergies (08/24/2019) Latex: Unknown Food Allergies: none Environmental Allergies: none OBSTETRICAL HISTORY EDC: 09/03/2019 00:00 : 2 Para: 1 Gestational Diabetes: No Rh Sensitization: No Incompetent Cervix: No ALONSO: No Infertility: No ART Treatment: No Uterine Anomaly: No IUGR: No Hx Previous C/S: No Macrosomia: No Hx Loss/Stillborn: No PIH: No Hx : No Placenta Previa/Abruption: No Depression/PP Depression: No PTL/PROM: No Post Hemorrhage: No Current Procedures: Ultrasound Obstetrical History Comments: - December 2017 baby girl 39 weeks G2 - current SEE RECORDS Alcohol: No Marijuana : No Cocaine: No Other Illicit Drugs: No Cigarettes: Never Smoker. [id number] MEDICAL HISTORY Diabetes: No Blood Transfusion: No Pulmonary Disease (Asthma, TB): No Breast Disease: No Hypertension: No Slitter Operator Surgery: No Heart Disease: No Hosp/Surgery: No Autoimmune Disorder: No Anesthetic Complications: No Kidney Disease: No Abnormal Pap Smear: No Neuro/Epilepsy: No Psychiatric Disorders: No Other Medical Diseases: No Hepatitis/Liver Disease: No Significant Family History: No Varicosities/Phlebitis: No Trauma/Violence : No Thyroid Dysfunction: No INFECTIOUS HISTORY Gonorrhea: No Genital Herpes: No Chlamydia: No Tuberculosis: No Syphilis: No Hepatitis: No HIV/AIDS Exposure: No Rash or Viral Illness: No HPV: No PHYSICAL EXAM General: Normal HEENT: Normal Neurologic: Normal Thyroid: Normal Heart: Normal Lungs: Normal Breast: Deferred Back: Normal Abdomen: Normal Genitourinary Exam: Normal Extremities: Normal DTRs: Normal Pelvic Type: Adequate Vital Signs: Reviewed VAGINAL EXAM Dilatation: 5 Effacement: 80 Station: -2 MEMBRANES Pooling: Positive Membranes: Ruptured FETUS A EGA: 38.4 Monitoring: External US FHR- Baseline: 120 Variability: Moderate 6-25bpm Decelerations: None FHR Category: Category I Presentation: Vertex Admit Comment: admit for labor PLANS FOR LABOR AND DELIVERY Labor and Delivery: None Pain Management: Medications; Epidural Feeding Preference: Breast Benefit of Breast Feed Discussed: Yes Circumcision: No INFORMED CONSENT Signature: with User ID: [email or web address]
[2019-08-24] MEDS ORDERED: OXYTOCIN/NORMAL SALINE 20 UNIT/1,000 ML RTUINJ ONE (07:27)
[2019-08-24] MEDS ORDERED: NA PHOS,M-B/NA PHOS,DI-BA (ADULT) 133 ML ENEMA PR PRN (09:30)
[2019-08-24] MEDS ORDERED: PROMETHAZINE HCL 25 MG SUPP.RECT PR PRN (09:30)
[2019-08-24] MEDS ORDERED: GLYCERIN/WITCH HAZEL LEAF 1 EACH MED..WIPE TP PRN (09:30)
[2019-08-24] MEDS ORDERED: PSEUDOEPHEDRINE HCL 30 MG TABLET PO PRN (09:30)
[2019-08-24] MEDS ORDERED: MAGNESIUM HYDROXIDE SUSP 30 ML UDCUP PO PRN (09:30)
[2019-08-24] MEDS ORDERED: OXYTOCIN/NORMAL SALINE 20 UNIT/1,000 ML RTUINJ IV PRN (09:30)
[2019-08-24] MEDS ORDERED: DIPH/PERTUSS(ACELL)/TETANUS VAC/PF 0.5 ML SYR (>=10YO) IM PRN (09:30)
[2019-08-24] MEDS ORDERED: PROMETHAZINE HCL INJ 25 MG/1 ML VIAL IV PRN (09:30)
[2019-08-24] MEDS ORDERED: DIBUCAINE 1% OINTMENT 28 GM TP PRN (09:30)
[2019-08-24] MEDS ORDERED: ACETAMINOPHEN 650 MG SUPP.RECT PR PRN (09:30)
[2019-08-24] MEDS ORDERED: BENZOCAINE/MENTHOL AEROSOL SPRAY 56 ML TOP PRN (09:30)
[2019-08-24] MEDS ORDERED: MEASLES,MUMPS&RUBELLA VACC/PF 0.5 ML VIAL SUBCUT PRN (09:30)
[2019-08-24] MEDS ORDERED: DIPHENHYDRAMINE HCL 25 MG CAPSULE PO PRN (09:30)
[2019-08-24] MEDS ORDERED: PROMETHAZINE HCL 25 MG TABLET PO PRN (09:30)
[2019-08-24] MEDS ORDERED: ZOLPIDEM TARTRATE 5 MG TABLET PO PRN (09:30)
[2019-08-24] MEDS ORDERED: ACETAMINOPHEN WITH CODEINE #3 TABLET PO PRN ×2 (09:30)
[2019-08-24] MEDS: DOCUSATE SODIUM 100 MG CAPSULE PO SCH ×2 (12:03→17:24)
[2019-08-24] MEDS: FAMOTIDINE 20 MG TABLET PO SCH ×2 (12:04→22:04)
[2019-08-24] MEDS: FERROUS SULFATE 325 MG TABLET PO SCH ×2 (12:04→17:24)
[2019-08-24] MEDS: SENNOSIDES/DOCUSATE 8.6-50 MG 1 EACH TABLET PO SCH (12:05)
[2019-08-24] MEDS: PRENATAL VITAMIN W DHA CAPSULE PO SCH (12:05)
[2019-08-24] MEDS: IBUPROFEN 800 MG TABLET PO SCH ×2 (14:08→22:05)
[2019-08-25] MEDS: IBUPROFEN 800 MG TABLET PO SCH ×3 (06:32→22:00)
[2019-08-25 06:45] LABS: HEMATOCRIT 36.6 % (36.0-47.0); HEMOGLOBIN 12.4 g/dL (12.0-15.5); MEAN CORPUSCULAR HEMOGLOBIN 30.5 pg (27.0-33.4); MEAN CORPUSCULAR VOLUME 90 fl (80-97); PLATELET COUNT 175 10^3/uL (150-450); RED BLOOD COUNT 4.07 10^6/uL (3.72-5.28); RED CELL DISTRIBUTION WIDTH 14.5 % (11.5-14.0)
[2019-08-25] MEDS: PRENATAL VITAMIN W DHA CAPSULE PO SCH (09:11)
[2019-08-25] MEDS: FAMOTIDINE 20 MG TABLET PO SCH ×2 (09:11→22:00)
[2019-08-25] MEDS: DOCUSATE SODIUM 100 MG CAPSULE PO SCH ×2 (09:12→17:31)
[2019-08-25] MEDS: SENNOSIDES/DOCUSATE 8.6-50 MG 1 EACH TABLET PO SCH (09:12)
[2019-08-25] MEDS: FERROUS SULFATE 325 MG TABLET PO SCH ×2 (09:12→17:31)
--- NOTE | 2019-08-25 10:51 | PDOC PROGRESS REPORT ---
Subjective-OB Progress Note for:: 08/25/19 Subjective: Pt doing well, no concerns. She reports light bleeding, reg diet and is voiding without difficulty. Physical Exam (OB) Vital Signs: Temp Pulse Resp BP Pulse Ox 97.5 F 76 16 143/76 H 96 08/25/19 07:30 08/25/19 07:30 08/25/19 07:30 08/25/19 07:30 08/25/19 07:30 Intake & Output 08/24/19 08/25/19 08/26/19 06:59 06:59 06:59 Intake Total 700 480 Balance 700 480 Weight 127.459 kg - PIH/Pre-Eclampsia Clonus: Negative Headache: Absent Epigastric Pain: No Visual Changes: No - Lochia Lochia Amount: Scant < 10 ml Lochia Color: Rubra/Red - Abdomen Description: Soft Hernia Present: No Fundal Description: Firm, Midline Fundal Height: u/u - u/2 Objective-Diagnostic Laboratory: 08/25/19 06:28 08/25/19 06:28 WBC 11.0 H RBC 4.07 Hgb 12.4 Hct 36.6 MCV 90 MCH 30.5 MCHC 34.0 RDW 14.5 H Plt Count 175 Assessment and Plan(PN) - Assessment and Plan (1) Active labor at term Is this a current diagnosis for this admission?: Yes (2) Vaginal delivery Is this a current diagnosis for this admission?: Yes - Time Spent with Patient Time with patient: Less than 15 minutes Medications reviewed and adjusted accordingly: Yes - Disposition Anticipated Discharge: Home Within: within 24 hours
[2019-08-26] MEDS: IBUPROFEN 800 MG TABLET PO SCH (05:39)
[2019-08-26] MEDS: FERROUS SULFATE 325 MG TABLET PO SCH (09:28)
[2019-08-26] MEDS: SENNOSIDES/DOCUSATE 8.6-50 MG 1 EACH TABLET PO SCH (09:28)
[2019-08-26] MEDS: DOCUSATE SODIUM 100 MG CAPSULE PO SCH (09:28)
[2019-08-26] MEDS: FAMOTIDINE 20 MG TABLET PO SCH (09:29)
[2019-08-26] MEDS: PRENATAL VITAMIN W DHA CAPSULE PO SCH (09:29)
[2019-08-26 11:54] VITALS: BP 126/77
--- NOTE | 2019-08-26 13:16 | PDOC DISCHARGE SUMMARY ---
Impression - Admit/DC Date/PCP Admission Date/Primary Care Provider: 08/24/19 04:02 BHARGAVI PALMER MD Discharge Date: 08/26/19 - Discharge Diagnosis (2) Vaginal delivery Is this a current diagnosis for this admission?: Yes (3) Active labor at term Is this a current diagnosis for this admission?: Yes - Assessment Summary: term vaginal delivery 2 days pp stable for discharge. Understands warning s/s and reasons to rtc/[facility] - Additional Information Resuscitation Status: Full Code Discharge Diet: As Tolerated, Regular Discharge Activity: Activity As Tolerated, Balance Activity w/Rest, No Lifting Over 10 Pounds, Pelvic Rest, No tub bath, Walk Frequently Referrals: BHARGAVI PALMER MD [Primary Care Provider] - (Follow up with [facility] in 4 weeks for your post evaluation. Call the office and make an appt. ) Prescriptions: Ibuprofen [Motrin 800 mg Tablet] 800 mg PO Q8HP PRN #20 tablet PRN Reason: Abdominal Cramping Home Medications: No122/Iron/Folic Acid [ Multi Tablet] 1 each PO DAILY 12/25/17 Ibuprofen [Motrin 800 mg Tablet] 800 mg PO Q8HP PRN #20 tablet 08/26/19 Results Laboratory Results: WBC 11.0 10^3/uL (4.0-10.5) H 08/25/19 06:28 RBC 4.07 10^6/uL (3.72-5.28) 08/25/19 06:28 Hgb 12.4 g/dL (12.0-15.5) 08/25/19 06:28 Hct 36.6 % (36.0-47.0) 08/25/19 06:28 MCV 90 fl (80-97) 08/25/19 06:28 MCH 30.5 pg (27.0-33.4) 08/25/19 06:28 MCHC 34.0 g/dL (32.0-36.0) 08/25/19 06:28 RDW 14.5 % (11.5-14.0) H 08/25/19 06:28 Plt Count 175 10^3/uL (150-450) 08/25/19 06:28 Lymph % (Auto) 34.6 % (13-45) 08/24/19 04:15 Monona % (Auto) 6.9 % (3-13) 08/24/19 04:15 Eos % (Auto) 0.4 % (0-6) 08/24/19 04:15 Baso % (Auto) 1.1 % (0-2) 08/24/19 04:15 Absolute Neuts (auto) 5.5 10^3/uL (1.7-8.2) 08/24/19 04:15 Absolute Lymphs (auto) 3.4 10^3/uL (0.5-4.7) 08/24/19 04:15 Absolute Monos (auto) 0.7 10^3/uL (0.1-1.4) 08/24/19 04:15 Absolute Eos (auto) 0.0 10^3/uL (0.0-0.6) 08/24/19 04:15 Absolute Basos (auto) 0.1 10^3/uL (0.0-0.2) 08/24/19 04:15 Seg Neutrophils % 57.0 % (42-78) 08/24/19 04:15 RPR NONREACTIVE (NONREACTIVE) 08/24/19 04:15 Blood Type O POSITIVE 08/24/19 04:15 Antibody Screen NEGATIVE 08/24/19 04:15
--- NOTE | 2019-08-27 13:07 | Delivery Summary ---
Del Sum A-C Datetime Report Generated by CPN: 08/27/2019 13:06 DELIVERY PERSONNEL DELIVERY PERSONNEL: [id number] Delivery Doctor:: Lili Mandel MD Labor and Delivery Nurse:: Marlin Bender RNoccupational health physician Nurse:: Zeinab Gastelum RN Food Services Coordinator/SENIOR QA ENGINEER: Annmarie Daniel, COLD WATER MACHINE OPERATOR MATERNAL INFORMATION Delivery Anesthesia: Epidural Medications After Delivery: Pitocin Drip 20 Units/1000ml NSS Meds After Delivery Comment: pitocin 20 units in 1000mL nss Estimated Blood Loss (ml): 100 Maternal Complications: None Provider Comments: 1min shoulder dystocia relieved with Khalif and suprapubic maneuvers. LABOR SUMMARY EDC: 09/03/2019 00:00 No. Babies in Womb: 1 Attempted: No Labor Anesthesia: Epidural LABOR INFORMATION Reason for Induction: Not Applicable Onset of Labor: 08/24/2019 03:47 Complete Dilatation: 08/24/2019 09:03 Oxytocin: N/A Group B Beta Strep: negative Steroids Given: None Reason Steroids Not Administered: Not Applicable MEMBRANES Membranes Rupture Method: Spontaneous Membranes Rupture Method: Spontaneous Rupture of Membranes: 08/24/2019 03:47 Rupture of Membranes: 08/24/2019 03:46 Length of Rupture (hr): 5.57 Length of Rupture (hr): 5.58 Amniotic Fluid Color: Clear Amniotic Fluid Amount: Moderate Amniotic Fluid Odor: Normal STAGES OF LABOR Stage 1 hr: 5 Stage 1 min: 16 Stage 2 hr: 0 Stage 2 min: 18 Stage 3 hr: 0 Stage 3 min: 4 Total Time in Labor hr: 5 Total Time in Labor min: 38 VAGINAL DELIVERY Episiotomy: None Laceration #1: None Laceration Extension #1: N/A Laceration Repair: Not Applicable Sponge Count Correct: Yes Sharps Count Correct: Yes CSECTION DELIVERY Primary Indication: N/A Secondary Indication: N/A CSection Incidence: N/A Labor: N/A Elective: N/A CSection Incision: N/A BABY A INFORMATION Infant Delivery Date/Time: 08/24/2019 09:21 Method of Delivery: Vaginal Born in Route : No : N/A Forceps: N/A Vacuum Extraction: N/A Shoulder Dystocia : Yes SHOULDER DYSTOCIA BABY A Delivery of Head: 08/24/2019 09:20 Time Head to Delivery : 1.0 1st Intervention to Resolve: Gentle Attempt at Traction, Assisted by Maternal Expulsive Efforts 2nd Intervention to Resolve: McRobert's Maneuver 3rd Intervention to Resolve: Suprapubic Pressure Verify NO Fundal Pressure: No Fundal Pressure Applied Arm Under Symphisis at Del: Right PRESENTATION/POSITION BABY A Presentation: Cephalic Cephalic Presentation: Vertex Vertex Position: Left Occipital Anterior Breech Presentation: N/A PLACENTA INFORMATION BABY A Placenta Delivery Time : 08/24/2019 09:25 Placenta Method of Delivery: Spontaneous Placenta Status: Delivered SCORES BABY A Heart Rate 1 min: >100 bpm Resp Effort 1 min: Good Cry Reflex Irritability 1 min: Cough or Sneeze or Pulls Away Muscle Tone 1 min: Active Motion Color 1 min: Body Gut[place]berg, Extremities Blue Resuscitation Effort 1 min: Tactile Stimulation SCORE 1 MIN: 9 Heart Rate 5 min: >100 bpm Resp Effort 5 min: Good Cry Reflex Irritability 5 min: Cough or Sneeze or Pulls Away Muscle Tone 5 min: Active Motion Color 5 min: Body Gut[place]berg, Extremities Blue Resuscitation Effort 5 min: N/A SCORE 5 MIN: 9 INFANT INFORMATION BABY A Gestational Age at Delivery: 38.4 Gestational Status: Early Term- 37- 38.6 Weeks Infant Outcome : Liveborn Infant Condition : Stable Sex: Male IDENTIFICATION BABY A Infant Verification Date/Time: 08/24/2019 09:29 ID Band Number: [id number] Mother's Name Verified: Yes Infant RN Verifying : TMartin,RN Additional Verifying Personnel: [facility],RN WEIGHT/LENGTH BABY A Infant Birthweight (gm): 3712 Weight (lb): 8 Infant Weight (oz): 3 Infant Length (in): 21.50 Length (cm): 54.61 CORD INFORMATION BABY A No. Cord Vessels: 3 Nuchal Cord : N/A Cord Blood Taken: Yes-For Eval (Mom's Blood Type - or O+) Infant Suction: Mouth ASSESSMENT BABY A Complications: None Physical Findings at Delivery: Within Normal Limits Infant Respirations: Appears Normal Diversity Intern/ALS Called : No Care By: Vick Gastelum RN Transferred To: Remains with Mother BABY B INFORMATION : N/A SIGNATURES Signature: with User ID: [email or web address]
== END 2019-08-26 15:20 | disposition home or self-care (01) | DRG 807 ==
LOC: LC 03:54 → LR 04:02 → 2S 11:57
PROVIDERS: ADMIT Obstetrics & Gynecology; ATTEND Obstetrics & Gynecology
PROC: 10E0XZZ Delivery of Products of Conception, External Approach (ICD-10-PCS; principal; 2019-08-24)
PROC: 3E0234Z Introduction of Serum, Toxoid and Vaccine into Muscle, Percutaneous Approach (ICD-10-PCS; 2019-08-26)
DX: O66.0 Obstructed labor due to shoulder dystocia (principal); Z37.0 Single live birth; Z3A.39 39 weeks gestation of pregnancy; Z23 Encounter for immunization
CPT/HCPCS: 36415; 85025; 85027; 86592; 86850; 86900; 86901; 90715; J2370; J2590; J3010; J3490

== ENCOUNTER 2020-08-27 01:52 | Emergency (ER) | payer MEDICAID ==
[2020-08-27] MEDS ORDERED: CEFTRIAXONE INJ 1000 MG VIAL IM ONE (08:39)
[2020-08-27] MEDS ORDERED: KETOROLAC TROMETHAMINE 60 MG/2 ML SDV IM ONE (08:40)
[2020-08-27] MEDS ORDERED: METHYLPREDNISOLONE 4 MG TABLET PO ONE (08:41)
[2020-08-27] MEDS ORDERED: LIDOCAINE 1% INJ (10 MG/ML) 10 ML MDV INJ ONE (09:00)
--- NOTE | 2020-08-27 09:42 | ER Document Report ---
Entered by JEREL COLLIER SCRIBE 08/27/20 0839 Acting as scribe for:NICOLAS STANFORD MD ED Eye Complaint - General Chief Complaint: Eye Problem Stated Complaint: RIGHT EYE SWELLING Time Seen by Provider: 08/27/20 08:15 Mode of Arrival: Ambulatory Information source: Patient Notes: This 25 year old female patient presents to the ED today with complaints of right eyelid swelling that started yesterday. Patient states that she thinks that the cyst lateral to her right eye is causing the swelling because it is swollen too. Denies any vision changes, insect bite, ear involvement, trauma, or runny nose. No known drug allergies. TRAVEL OUTSIDE OF THE [place] IN LAST 30 DAYS: No - Related Data Allergies/Adverse Reactions: No Known Allergies Allergy (Verified 08/24/19 02:45) Past Medical History - General Information source: Patient - Social History Smoking Status: Current Every Day Smoker Chew tobacco use (# tins/day): No Smoking Education Provided: No Frequency of alcohol use: Occasional Drug Abuse: None Family History: Reviewed & Not Pertinent - Immunizations Immunizations up to date: Yes Review of Systems - Review of Systems Constitutional: No symptoms reported EENT: See HPI Cardiovascular: No symptoms reported Respiratory: No symptoms reported Gastrointestinal: No symptoms reported Genitourinary: No symptoms reported Female Genitourinary: No symptoms reported Musculoskeletal: No symptoms reported Skin: See HPI Hematologic/Lymphatic: No symptoms reported Neurological/Psychological: No symptoms reported -: Yes All other systems reviewed and negative Physical Exam - Vital signs Vitals: Temp Pulse Resp BP Pulse Ox 98.5 F 85 15 133/80 H 99 08/27/20 02:01 08/27/20 02:01 08/27/20 02:01 08/27/20 02:01 08/27/20 02:01 - General General appearance: Alert In distress: None - HEENT Head: Normocephalic, Atraumatic Eyes: Periorbital edema - There is infraorbital and lateral soft tissue swelling of the right lower eyelid. Mild upper eyelid swelling appreciated. Conjunctiva: Injected - Mild, left eye Extraocular movements intact: Yes Pupils: PERRL Visual acuity- Right eye: 20/20 Visual acuity- Left eye: 20/20 Visual acuity- Both eyes: 20/20 Corrective lenses worn: No Fundascopic: No: Retinal hemorrhage - Respiratory Respiratory status: No respiratory distress Chest status: Nontender Breath sounds: Normal Chest palpation: Normal - Cardiovascular Rhythm: Regular Heart sounds: Normal auscultation Murmur: No Friction rub: No Gallop: None auscultated - Abdominal Inspection: Normal Distension: No distension Bowel sounds: Normal Tenderness: Nontender - Abdomen soft Organomegaly: No organomegaly - Back Back: Normal, Nontender - Extremities General upper extremity: Normal inspection General lower extremity: Normal inspection. No: Edema - Neurological Neuro grossly intact: Yes Orientation: AAOx4 [place] Coma Scale Eye Opening: Spontaneous [place] Coma Scale Verbal: Oriented [place] Coma Scale Motor: Obeys Commands Deyanira Coma Scale Total: 15 - Psychological Associated symptoms: Normal affect, Normal mood - Skin Skin Temperature: Warm Skin Moisture: Dry Skin Color: Normal Course - Re-evaluation Re-evalutation: 08/27/20 09:38 Patient has received IM Rocephin and ketorolac. Patient also received 4 mg Tylenol of Medrol. Patient swelling periorbital cellulitis has improved with decreased swelling at this time. - Vital Signs Vital signs: Temp Pulse Resp BP Pulse Ox 98.5 F 85 15 133/80 H 99 08/27/20 02:01 08/27/20 02:01 08/27/20 02:01 08/27/20 02:01 08/27/20 02:01 - Laboratory Results Critical Laboratory Results Reviewed: No Critical Results - Radiology Results Critical Radiology Results Reviewed: No Critical Results Discharge - Discharge Clinical Impression: Periorbital cellulitis of right eye Condition: Stable Disposition: HOME, SELF-CARE Additional Instructions: You have right-sided periorbital cellulitis which is an inflammation of the soft tissue around your right eye most likely due to bacterial infection. You have been given intramuscular injection of Rocephin today as well as medications for swelling and inflammation. Prescriptions have been written for you to continue your care of taking antibiotics and anti-inflammatory medications. Follow-up with your primary care physician or return to the emergency department if there is any further problems. Prescriptions: Amoxicillin/Potassium Clav [Augmentin 875-125 Tablet] 1 tab PO BID #20 tab Ibuprofen [Ibu] 800 mg PO TID PRN #21 tablet PRN Reason: For Pain Scale 3-5 Methylprednisolone [Medrol 4 Mg Tablet] 4 mg PO BID 2 Days #4 tablet I personally performed the services described in the documentation, reviewed and edited the documentation which was dictated to the scribe in my presence, and it accurately records my words and actions.
[2020-08-27 10:04] VITALS: BP 126/78
== END 2020-08-27 09:45 | disposition home or self-care (01) ==
LOC: ER 01:52
DX: L03.213 Periorbital cellulitis (principal); F17.200 Nicotine dependence, unspecified, uncomplicated
CPT/HCPCS: 99284; 96372; J1885; J7509; J0696; J3490